=== PATIENT | male | born 1980 | race Caucasian/White ===

== ENCOUNTER 2023-04-10 06:07 | Outpatient (CLI) | payer OTHER, SELFPAY ==
--- NOTE | 2023-04-10 | US_ITS ---
WS: [id number] RIGHT UPPER QUADRANT ULTRASOUND HISTORY: Abnormal LFTs. COMPARISON: None available. Liver: 17.7 cm in length. Liver is slightly enlarged. Coarsened echotexture throughout with hepatic s teatosis. Portal Vein: Normal hepatopetal flow with monophasic waveform. Gallbladder: Normally distended gallbladder with no stones or wall thickening. CBD: 0.3 cm Pancreas: Portions of the head and tail are obscured. The body is negative. Right kidney: 10.6 cm in length. Normal size and echogenicity. No hydronephrosis or mass. Aorta and IVC: Unremarkable abdominal aorta and IVC. No ascites. US/US abdomen limited [id number] IMPRESSION: 1. Normal gallbladder. 2. Mild hepatic steatosis and hepatomegaly.
== END 2023-04-10 06:08 | disposition home or self-care (01) ==
PROVIDERS: PCP Family Medicine; Visit Provider Family Medicine
DX: R94.5 Abnormal results of liver function studies (principal); K76.0 Fatty (change of) liver, not elsewhere classified; R16.0 Hepatomegaly, not elsewhere classified; J34.2 Deviated nasal septum; J34.89 Other specified disorders of nose and nasal sinuses; K13.79 Other lesions of oral mucosa; G47.33 Obstructive sleep apnea (adult) (pediatric); I10 Essential (primary) hypertension; K21.9 Gastro-esophageal reflux disease without esophagitis; G43.909 Migraine, unspecified, not intractable, without status migrainosus
CPT/HCPCS: 76705; 99203

== ENCOUNTER → 2023-05-08 09:27 | Outpatient (BNVA) | payer OTHER, SELFPAY | PROVIDERS: PCP Family Medicine; Visit Provider Otolaryngology | DX: J34.2 Deviated nasal septum (principal); J34.89 Other specified disorders of nose and nasal sinuses; G47.33 Obstructive sleep apnea (adult) (pediatric) | CPT/HCPCS: 99215 ==

== ENCOUNTER 2023-05-25 05:37 | Day surgery (SDC) | payer OTHER, SELFPAY ==
[2023-05-24 09:11] VITALS: BMI 28.7
[2023-05-25] VITALS (8 sets, daily range): BP systolic 137–154; BP diastolic 99–110; PULSE 70–108; RESP 13–20; TEMP 36.3–36.8; O2SAT 97–99
[2023-05-25] MEDS: sodium chloride 0.9% 1,000 ML 30 ML IV (06:22)
--- NOTE | 2023-05-25 06:36 | W.PM.OPSUD ---
Surgery/Procedure H&P Update DATE OF PROCEDURE: May 25, 2023 DATE H&P PERFORMED: 05/08/23 H&P UPDATE INFORMATION: I have reviewed H&P completed within last 30 days, I have examined patient prior to procedure and No changes to prior documentation CHANGES TO PREVIOUS DOCUMENTATION: No changes PREOP DIAGNOSIS: Deviated nasal septum/nasal obstruction PRIMARY INDICATION FOR PROCEDURE: Deviated nasal septum with nasal obstruction PLANNED PROCEDURE: Operation Date: 05/25/23 07:00 Proposed Procedures p 23783- septoplasty J34.2 , K13.79(Not Applicable) - Moy Lai MD
[2023-05-25] MEDS: ceFAZolin 2,000 MG in sodium chloride 0.9% (plus) 50 ML 100 MG IV (07:01)
[2023-05-25] MEDS: lidocaine-epi 2% 1.7mL Cartridge (OR Only) 8.5 ML XX (07:35)
[2023-05-25] MEDS: neomycin-poly-bacitracin oint 28 gm 1 APPLIC TOPICAL (07:35)
[2023-05-25] MEDS: oxymetazoline 0.05% Nasal Spray 15 mL 2 SPRAY NOSTRIL-B (07:35)
--- NOTE | 2023-05-25 07:56 | PM.OP ---
Operative Report Date of procedure: May 25, 2023 Pre-op diagnosis: Deviated nasal septum with nasal obstruction Post-op diagnosis: Same. Also left inferior lateral nasal wall lesion Post-op findings: Deviated nasal septum severe to left. Hidden left inferior lateral nasal wall lesion. Procedure done: Septoplasty. Excision of left lateral inferior nasal wall lesion. Implants: 2 septal splints. 2 Telfa packs. Specimens removed/disposition: Left lateral inferior nasal wall lesion Pathology: Same Surgeon: Moy Lai MD Anesthesia: General and Local Estimated blood loss: 10 ML Complications: No complications encountered Findings: Severely deviated nasal septum to the left side with nasal obstruction 100% on left side. Brief History: 43-year-old male patient who has had nasal trauma in the past. Found to have a severely deviated nasal septum to the left side with complete obstruction. He will be brought to the operating room at this time to undergo septoplasty. The procedure its risks and complications were explained in detail in the office setting. These risks included bleeding infection numbness scarring swelling bruising septal hematoma abscess or perforation change in sense of smell nasal dryness recurrent problems need for additional treatment and more serious risks associated with anesthesia. With these things understood informed consent was granted and witnessed. Procedure: Description of procedure: The patient was placed on the operating table in the supine position. Adequate general endotracheal tube anesthesia was obtained. He was given Ancef IV for prophylaxis and Decadron to help with postoperative edema. A timeout was accomplished identifying the patient date of plan procedure allergies fire risk and medications given. With all in agreement the procedure continued. The patient was placed into a semirecumbent position. His nose was packed with cottonoids soaked in 12-hour Afrin. Nasal hairs were trimmed with scissors. Afrin packs were removed and the septum was infiltrated with local. A total of 8.5 mL of 2% Xylocaine with 1-100,000 epinephrine was utilized. The Afrin packs were reapplied to the nose and the patient was prepped and draped in usual fashion. The Afrin packs were once again removed from the nose. A left hemitransfixion incision was created with a 15 blade carrying it down to the level of the septal cartilage. There was an anterior band of the cartilage to the right side. Then a significant comminuted fracture with segments of cartilage in several directions off the crest to the left side. This impinged on the left inferior lateral nasal wall under the inferior turbinate. Careful dissection lifted the perichondrium and periosteum off the left side of the cartilage and bone. Large segments of totally deformed bone and cartilage were resected. A large piece of superior bone was resected and saved to be placed back into the posterior pocket at a later time. The bony spur to the left side was resected with Suraj forceps. The maxillary crest was fractured back into a midline position and trimmed with Suraj forceps. Examination at this point revealed that there was an exophytic papillomatous looking lesion on the inferior aspect of the left lateral nasal wall inferior to the inferior turbinate. This was resected with Suraj forceps. Then the large segment of bone that had been previously harvested was placed back into the posterior pocket. There were tears in the left side of the mucous membrane and these were to serve as drain holes prevent hematoma formation. These were laid back into proper position. The hemitransfixion incision was closed loosely with interrupted 4-0 chromic suture. Both nasal passages were now symmetrical. 2 septal splints were coated with Neosporin and 1 was applied each side of the septum. These were sutured in a through and through fashion with 3-0 Prolene. Then 2 Telfa packs were cut to size coated with Neosporin and 1 was applied each side of the nose extending from anterior to posterior. The face was then cleansed. The throat was suctioned clean. A drip guide was applied under the patient's nose. The patient was then returned to anesthesia for wake-up and transport to recovery. He tolerated the procedure well. Had an estimated blood loss of 10 mL. Arrived in recovery in good and stable condition.
[2023-05-25] MEDS: oxyCODONE-APAP 5-325 mg Tablet 1 TAB PO (08:44)
--- NOTE | 2023-05-25 08:49 | ANES.PREANE2 ---
Pre-Anesthetic Assessment Height/Weight: Height 1.78 m Weight 90.718 kg Temp Pulse Resp BP Pulse Ox O2 Del Method 98.2 F 71 13 149/104 99 Room Air 05/25/23 08:24 05/25/23 08:24 05/25/23 08:24 05/25/23 08:24 05/25/23 08:24 05/25/23 08:24 Preop Diagnosis: Deviated nasal septum/nasal obstruction Operation Date: 05/25/23 07:00 Proposed Procedures p 67730- septoplasty J34.2 , K13.79(Not Applicable) - Moy Lai MD Familial anesthetic complications: none Was Beta Rogerio taken within 24 hours: N/A Was Clonidine taken within 24 hours: N/A Last intake: Intake Last Liquid Date 05/24/23 Last Liquid Time 22:00 Last Solid Date 05/24/23 Last Solid Time 16:00 Social Alcohol and Tobacco Exam alert, oriented x 3 and regular rate & rhythm Airway Submandibular: within normal limits Cervical ROM: within normal limits Mallampati: Class II Dentition: chipped Pulmonary Chronic Obstructive Pulmonary Disease and Sleep Apnea CV/HEM Hypertension GI Gastroesophageal Reflux Disease Anesthetic Plan ASA status: 3 Anesthesia: General Medications/Allergies Home Medications Medication Instructions Recorded Confirmed Last Taken Type amlodipine 5 mg tablet 2 ea PO DAILY 04/10/23 05/24/23 05/25/23 History potassium chloride 10 mEq 10 meq PO DAILY 05/08/23 05/24/23 05/24/23 History capsule,extended release cephalexin 500 mg capsule 500 mg PO TID 10 days #30 caps 05/25/23 Unknown Rx oxycodone-acetaminophen 5 mg-325 2 tab PO Q4-5H PRN pain 5 days #30 05/25/23 Unknown Rx mg tablet (Percocet) tabs Allergies Allergy/AdvReac Type Severity Reaction Status Date / Time No Known Allergies Allergy Unverified 05/08/23 09:33 Current Medications Generic Name Dose Route Start Last Admin Trade Name Freq PRN Reason Stop Dose Admin Sodium Chloride 1,000 mls @ 30 mls/hr 05/25/23 05:45 05/25/23 06:22 Sodium Chloride 0.9% IV 05/26/23 05:44 30 mls/hr .Q24H MARKOS Administration PFSH Anesthesia Social History Smoking and tobacco status: current every day smoker cigarettes Packs smoked per day: 1 Years cigarettes smoked: 20 Data Anesthesia Cardiac Studies: No Data to Display
--- NOTE | 2023-05-25 13:59 | ANE.PACU2 ---
Inpatient post-anesthesia follow up: Airway intact: Yes Vital signs: Temperature 98.2 F Pulse Rate 76 Respiratory Rate 17 Blood Pressure 146/99 Pulse Oximetry 98 Oxygen Delivery Me thod Room Air Oxygen Flow Rate Fraction of Inspir ed Oxygen Hydration adequate: Yes Nausea and vomiting: No Pain level: 2 Mental status: Baseline
== END 2023-05-25 09:00 | disposition home or self-care (01) ==
PROVIDERS: PCP Family Medicine; Visit Provider Otolaryngology
PROC: (CPT 30520; principal; 2023-05-25 07:00)
DX: J34.2 Deviated nasal septum (principal); J34.89 Other specified disorders of nose and nasal sinuses; J44.9 Chronic obstructive pulmonary disease, unspecified; G47.30 Sleep apnea, unspecified; I10 Essential (primary) hypertension; K21.9 Gastro-esophageal reflux disease without esophagitis; F17.210 Nicotine dependence, cigarettes, uncomplicated
CPT/HCPCS: 30100; 30520; 88305; J0330; J0690; J1100; J1200; J2250; J2405; J2704; J2710; J3010; J3490; J7030

== ENCOUNTER → 2023-06-20 09:37 | Outpatient (BNVA) | payer OTHER, SELFPAY | PROVIDERS: PCP Family Medicine; Visit Provider Otolaryngology | DX: Z48.810 Encounter for surgical aftercare following surgery on the sense organs (principal) | CPT/HCPCS: 99024 ==

== ENCOUNTER → 2025-04-30 08:14 | Outpatient (BNVA) | payer OTHER, SELFPAY | PROVIDERS: PCP Family Medicine; Visit Provider Nurse Practitioner Family | DX: L40.8 Other psoriasis (principal); L60.3 Nail dystrophy; D23.39 Other benign neoplasm of skin of other parts of face; F42.4 Excoriation (skin-picking) disorder; L72.0 Epidermal cyst; L82.0 Inflamed seborrheic keratosis; L29.89 Other pruritus; R20.9 Unspecified disturbances of skin sensation; R20.8 Other disturbances of skin sensation; L53.8 Other specified erythematous conditions | CPT/HCPCS: 17110; 99204 ==